=== PATIENT | male | born 1940 | race Two or more races ===

== ENCOUNTER 2023-01-05 12:54 | Inpatient (IN) | payer OTHER ==
[~2023-01-05] VITALS: Ht 162.6 cm; Wt 60.3 kg
[2023-01-05] MEDS ORDERED: ROCALTROL0.25 MCG PO (13:20)
[2023-01-05] MEDS ORDERED: FARXIGA10 MG PO (13:20)
[2023-01-05] MEDS ORDERED: COZAAR25 MG PO (13:21)
[2023-01-05] MEDS ORDERED: ZYLOPRIM100 M1 PO (13:21)
[2023-01-05] MEDS ORDERED: FERREX 150 FOR1 EAC1 (13:21)
[2023-01-05] MEDS ORDERED: SERTRALINE20 MG/1 ML (13:21)
[2023-01-05] MEDS ORDERED: ATORVASTATIN CA10 MG (13:22)
[2023-01-05] MEDS ORDERED: LOKELMA10 GM PO (13:22)
[2023-01-05] MEDS ORDERED: TAMS0.4C PO (13:22)
[2023-01-05] MEDS ORDERED: AMLODIPINE-OLM1 EAC3 PO (13:22)
--- NOTE | 2023-01-05 13:24 | NUR ---
PACIENTE ALERTA Y ORIENTADO POR 3 ESFERAS REFIERE SENTIR ABHIJIT DOLOR ABDOMINAL DESDE EL JUEVES Y PRESENTAR HISTORIAL DE DIVERTICULITIS. SE MIDEN S/V. SE UBICA PACIENTE EN AREA DE OBSERVACION.
--- NOTE | 2023-01-05 13:50 | NUR ---
SE EDUCA PACIENTE SOBRE EL [place] MEDICO Y ESTA REFIERE ENTENDER. SE CANALIZA Y SE COLOCA IVFS. SE JESUS MUESTRAS DE [place] Y SE ENVIAN. SE ENTREGA POTE DE U/A. SE ENTREGA POTE DE CONTRASTE ORAL Y SE ORIENTA SOBRE BILLY BRENNA
--- NOTE | 2023-01-05 15:03 | NUR ---
PTE ALERTA,ESTABLE Y ORIENTADO.SE EDUCA SOBRE EL TRATAMIENTO QUE RECIBIRA EN EL HOSPITAL Y ESTA REFIEREN ENTENDER.SE MANTIENE EN LA ESPERA DEL CT
== END 2023-01-07 16:13 | disposition home or self-care (01) | DRG 392 ==
LOC: ER 12:54 → MEDI 18:28
PROVIDERS: ADMIT Internal Medicine; ATTEND Internal Medicine
PROC: BW21YZZ Computerized Tomography (CT Scan) of Abdomen and Pelvis using Other Contrast (ICD-10-PCS; principal; 2023-01-05)
DX: K57.32 Diverticulitis of large intestine without perforation or abscess without bleeding (principal); N17.9 Acute kidney failure, unspecified; I12.0 Hypertensive chronic kidney disease with stage 5 chronic kidney disease or end stage renal disease; N18.5 Chronic kidney disease, stage 5; Z20.822 Contact with and (suspected) exposure to COVID-19